=== PATIENT | male | born 1995 | race Caucasian/White ===

== ENCOUNTER 2017-03-18 23:19 | Emergency (ER) | payer OTHER ==
[2017-03-19] MEDS: LIDOCAINE W/EPINEPHRINE 1% 20ML VIAL SC (00:15)
[2017-03-19] MEDS ORDERED: IBUPROFEN 800 MG TAB PO (01:30)
== END 2017-03-19 01:58 | disposition left against medical advice (07) ==
LOC: M ED 23:19
DX: S76.122A Laceration of left quadriceps muscle, fascia and tendon, initial encounter (principal); S81.012A Laceration without foreign body, left knee, initial encounter; W00.9XXA Unspecified fall due to ice and snow, initial encounter; Y92.480 Sidewalk as the place of occurrence of the external cause; Y93.01 Activity, walking, marching and hiking; F17.290 Nicotine dependence, other tobacco product, uncomplicated
CPT/HCPCS: 12032

== ENCOUNTER → 2018-07-19 | Outpatient (CLI) | payer OTHER ==
--- NOTE | 2018-07-19 10:27 | REP ---
MRI RIGHT ANKLE: TECHNIQUE: Sagittal proton density, STIR, axial proton density fat sat, T1, coronal proton density, STIR. The Achilles, anterior tibia, posterior tibia, flexor hallucis longus, flexor digitorum longus, and peroneal tendons are all intact without significant tenosynovitis. The anterior and posterior talofibular, tibiofibular, calcaneofibular, and deltoid ligaments are intact. Plantar tendon is intact. There is no evidence of plantar fascitis. No significant abnormality is seen in the sinus tarsi. Moderate anterior tibial spurring is seen with some minor subchondral marrow edema and cystic change in that portion of the anterior distal end of tibia. There is likely anterior impingement based on these findings. 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 There is subchondral marrow edema and cystic change in the posterior talus along the synchondrosis. There is also mild subchondral marrow edema in the os trigonum along the synchondrosis. Adjacent loculated fluid likely represents synovitis and there is fluid surrounding the adjacent flexor hallucis longus suggesting focal tenosynovitis. There appears to be some thickening of the posterolateral capsule. All of these findings are compatible with posterior impingement. There is mild diffuse chondromalacia at the tibiotalar joint. IMPRESSION: Moderate spurring of the anterior distal end of the tibia with mild subchondral marrow edema and cystic change at that location compatible with anterior impingement. 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 Focal subchondral marrow edema and cystic change is seen in the posterior talus along the synchondrosis and there is some very mild subchondral marrow edema in the os trigonum along the synchondrosis. There is surrounding loculated fluid suggesting synovitis with fluid surrounding the adjacent flexor hallucis longus compatible with focal tenosynovitis. Posterolateral capsule appears thickened. 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 Electronically Signed by David Mckeon MD 07/25/2018 04:13 P
== END ==
LOC: M RAD 06:23
PROVIDERS: ATTEND Physician Assistant
DX: M25.571 Pain in right ankle and joints of right foot (principal)